=== PATIENT | male | born 1940 | race Caucasian/White ===

== ENCOUNTER 2017-09-23 15:38 | Outpatient (CLI) | payer MEDICARE, BC ==
[2017-09-23 16:50] LABS: Hematocrit 42.8 % (42.0-52.0); Mean Platelet Volume 9.2 fL (7.4-10.4); Red Blood Cell (RBC) Count 4.47 mill/uL (4.70-6.10)
[2017-09-23 17:16] LABS: Anion Gap 10 mmol/L (10-20); BUN (Urea Nitrogen) 26 mg/dL (8.4-25.7); Calc. Creatinine Clearance 0 mL/min (70-130); Calcium 8.9 mg/dL (7.8-10.44); Carbon Dioxide 27 mmol/L (23-31); Chloride 107 mmol/L (98-107); Estimated GFR-MDRD 77
[2017-09-23 19:31] LABS: Bilirubin Negative (Negative); Blood, Urine Negative (Negative); Glucose, Urine (Dipstick) Negative (Negative); Ketone, Urine Negative (Negative); Nitrite Negative (Negative); Protein, Urine (Dipstick) Negative (Neg-Trace)
[2017-09-23 19:36] LABS: Bacteria/HPF None Seen HPF (None Seen); Hyaline Casts/LPF 0-3 HYALINE CAST LPF (0-3 Hyaline); RBC/HPF 0-3 HPF (0-3); Squamous Epithelial None Seen HPF (0-3); WBC/HPF 0-3 HPF (0-3)
== END 2017-09-23 15:39 | disposition home or self-care (01) ==
LOC: LABBT 15:38
PROVIDERS: ATTEND Urology
DX: Z01.818 Encounter for other preprocedural examination (principal); N40.0 Benign prostatic hyperplasia without lower urinary tract symptoms; R30.0 Dysuria
CPT/HCPCS: 80048; 81001; 85027

== ENCOUNTER 2017-10-01 06:19 | Day surgery (SDC) | payer MEDICARE, BC ==
[2017-09-23 16:27] VITALS: BMI 26.1
[2017-10-01 07:36] LABS: Prothrombin Time 16.9 SEC (12.0-14.7)
[2017-10-01] MEDS ORDERED: Levofloxacin 500 mg/D5W 100 ml Premix Bag ONE (07:44)
[2017-10-01] MEDS ORDERED: Dexamethasone 10 MG/ML VIAL SLOW IVP SCH (08:00)
[2017-10-01] MEDS ORDERED: B & O ONE (09:28)
[2017-10-01] MEDS ORDERED: Furosemide 20 MG/2 ML VIAL ONE (09:29)
[2017-10-01] MEDS ORDERED: Fentanyl 100 MCG/2 ML VIAL ONE ×2 (09:35→11:27)
--- NOTE | 2017-10-01 12:20 | OP ---
DATE OF PROCEDURE: 10/01/2017 PREOPERATIVE DIAGNOSIS: Benign prostatic hypertrophy. POSTOPERATIVE DIAGNOSIS: Benign prostatic hypertrophy. PROCEDURE: GreenLight laser vaporization of the prostate, 106,101J used. SURGEON: Dr. Kay. ANESTHESIA: General with laryngeal mask airway. FINDINGS: Adequate opening of the prostatic urethra. SPECIMEN: Prostate. ESTIMATED BLOOD LOSS: Minimal. DRAIN REMAINING: A 20-Sudanese 2-way. INDICATIONS: The patient is a 77-year-old male, who is followed in the office for BPH symptoms and already on maximum meds for definitive therapy. PROCEDURE IN DETAIL: The patient was brought into the room by Anesthesia, placed on table in supine position. After receiving general anesthetic, the legs were placed in lithotomy position and his perineum was prepped and draped in sterile fashion. Using the 24-Sudanese scope, I was unable to enter the meatus , so Feryn sounds were used to dilate the meatus to 26 Sudanese and then the scope was put back in and the bladder inspected. The ureteral orifices were preserved throughout the case and far enough away from the bladder neck. A power level of 80 was used near the bladder neck and the power level of 180 was used in the mid gland. A total of 106,101 joules used. When the scope was removed, a good stream was noted. Scope was put back in and bladder decompressed. Hemostasis ensured. A portion of the prostatic bed was pinning at power level of 80 for hemostasis and the scope was removed a final time. A 20-Sudanese catheter was placed to gravity and the patient was awakened and transferred to the PACU in stable condition. [facility]
[2017-10-01] MEDS ORDERED: Ondansetron HCl/PF 4 MG/2 ML Vial ONE (14:09)
[2017-10-01] MEDS ORDERED: ePHEDrine/0.9% NaCl/PF SYRINGE 50 mg/10 ml ONE (14:09)
[2017-10-01] MEDS ORDERED: Lidocaine 1% PF 5 ML VIAL ONE (14:09)
[2017-10-01] MEDS ORDERED: Propofol 200 MG/20 ML VIAL ONE (14:09)
== END 2017-10-01 13:15 | disposition home or self-care (01) ==
LOC: SDC 06:19
PROVIDERS: ATTEND Urology
PROC: 0V508ZZ Destruction of Prostate, Via Natural or Artificial Opening Endoscopic (ICD-10-PCS; principal; 2017-10-01)
DX: N40.1 Benign prostatic hyperplasia with lower urinary tract symptoms (principal); J45.909 Unspecified asthma, uncomplicated; G43.909 Migraine, unspecified, not intractable, without status migrainosus; I25.10 Atherosclerotic heart disease of native coronary artery without angina pectoris; I10 Essential (primary) hypertension; E78.00 Pure hypercholesterolemia, unspecified; K21.9 Gastro-esophageal reflux disease without esophagitis; Z91.018 Allergy to other foods; Z88.8 Allergy status to other drugs, medicaments and biological substances; Z95.2 Presence of prosthetic heart valve; Z95.1 Presence of aortocoronary bypass graft; Z95.0 Presence of cardiac pacemaker; Z87.891 Personal history of nicotine dependence; Z82.3 Family history of stroke; Z82.49 Family history of ischemic heart disease and other diseases of the circulatory system; Z98.890 Other specified postprocedural states
CPT/HCPCS: 36415; 85610; 88305; 96374; J1100; J1940; J1956; J2001; J2405; J2704; J3010

== ENCOUNTER 2018-01-03 14:29 | Emergency (ER) | payer MEDICARE, BC | END 2018-01-03 15:15 | disposition home or self-care (01) | LOC: ERS 14:29 | DX: S16.1XXA Strain of muscle, fascia and tendon at neck level, initial encounter (principal); I25.2 Old myocardial infarction; I50.9 Heart failure, unspecified; V89.2XXA Person injured in unspecified motor-vehicle accident, traffic, initial encounter | CPT/HCPCS: 99283 ==

== ENCOUNTER 2018-05-20 15:33 | Outpatient (CLI) | payer MEDICARE, BC | END 2018-05-20 15:34 | disposition home or self-care (01) | LOC: BICRAD 15:33 | PROVIDERS: ATTEND Internal Medicine Cardiovascular Disease | DX: R06.09 Other forms of dyspnea (principal); R22.2 Localized swelling, mass and lump, trunk | CPT/HCPCS: 71045 ==

== ENCOUNTER 2019-05-21 20:00 | Emergency (ER) | payer MEDICARE, BC ==
[2019-05-21] MEDS ORDERED: Lidocaine 1% PF 5 ML VIAL ONE (20:11)
[2019-05-21] MEDS ORDERED: Lidocaine 1% w/Epinephrine 1:100K 20 ML VIAL ONE (20:14)
[2019-05-21] MEDS ORDERED: Adacel (T-DAP) 0.5 ML SYRINGE ONE (20:15)
[2019-05-21] MEDS ORDERED: Bacitracin 1 PK ONE (20:32)
== END 2019-05-21 20:55 | disposition home or self-care (01) ==
LOC: ERS 20:00
DX: S61.412A Laceration without foreign body of left hand, initial encounter (principal); I25.2 Old myocardial infarction; I50.9 Heart failure, unspecified; Z79.01 Long term (current) use of anticoagulants; Z79.899 Other long term (current) drug therapy; W26.0XXA Contact with knife, initial encounter; Z23 Encounter for immunization
CPT/HCPCS: 12001; 90471; 90715; J2001

== ENCOUNTER 2019-08-27 21:51 | Emergency (ER) | payer MEDICARE, BC ==
[2019-08-27 23:03] LABS: #Eosinphils 0.2 thou/uL (0.0-0.7); #Lymphocytes 1.4 thou/uL (1.20-3.40); #Monocytes 0.4 thou/uL (0.11-0.59); #Neutrophils 2.1 thou/uL (1.40-6.50); %Basophils 0.8 % (0.0-1.0); %Eosinophils 4.8 % (0.0-10.0); %Lymphocytes 33.8 % (21.0-51.0); %Monocytes 10.3 % (0.0-10.0); %Neutrophils 50.4 % (42.0-75.0); Hemoglobin 13.5 g/dL (14.0-18.0); Mean Corpuscular HGB CONC 32.6 g/dL (32.0-36.0); Mean Corpuscular Volume 91.8 fL (78.0-98.0); Mean Platelet Volume 7.7 fL (7.4-10.4); Platelet Count 125 thou/uL (130-400); RBC Distribution Width 13.7 % (11.5-14.5); Red Blood Cell (RBC) Count 4.51 mill/uL (4.70-6.10); White Blood Cell (WBC) Count 4.2 thou/uL (4.8-10.8)
[2019-08-27 23:10] LABS: INR-International Normal Ratio 3.2; PTT 46.3 SEC (22.9-36.1); Prothrombin Time 32.4 SEC (12.0-14.7)
--- NOTE | 2019-08-27 23:24 | CT ---
NONCONTRAST CT HEAD: 08/27/19 HISTORY: Injury after a fall. Head laceration. COMPARISON: None. FINDINGS: Scattered areas of diminished attenuation is seen in the periventricular white matter which are nons pecific but likely attributable to chronic small vessel ischemic changes. There is no evidence There is no evidence of an acute infarction, hemorrhage, mass effect, or midline shift. There is mild cere bral and cerebellar volume loss. The ventricular system is normal in size, shape, and position. The visualized paranasal sinuses and mastoid air cells are clear. No calvarial fracture is identified. There is a calcification seen at the posterior aspect of the left globe of uncertain etiology. IMPRESSION: No acute intracranial abnormality is demonstrated. POS: JENI
--- NOTE | 2019-08-28 07:14 | RAD ---
3 VIEWS RIGHT WRIST: Date: 08/27/19 HISTORY: Patient tripped and fell, and has pain to bilateral wrists. FINDINGS: There is osteopenia. No obvious fracture is seen, and there is no evidence of a dislocation. Mild deg enerative changes seen involving the carpal bones. Minimal calcification seen in the region of the tr iangular fibrocartilage suggesting chondrocalcinosis. There is a lucency seen in the proximal pole of the hamate bone, which may be related to subchondral cystic changes versus intraosseous ganglion. Va scular calcifications seen volar aspect of wrist. IMPRESSION: No acute osseous abnormality. POS: OFF
--- NOTE | 2019-08-28 07:17 | RAD ---
3 VIEWS LEFT WRIST: Date: 08/27/19 HISTORY: Bilateral wrist pain after fall. 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 Osteopenia is present. N o obvious fracture or dislocation identified. Calcifications are seen in the region of the triangular fibrocartilage suggesting chondrocalcinosis. There is mild subcutaneous soft tissue swelling dorsal to the wrist. There are a few amorphous appearing calcifications seen at the dorsal aspect of the wri st, which is thought to more likely be related to calcifications as opposed to tiny avulsion injuries . No other findings. IMPRESSION: Subcutaneous soft tissue swelling dorsal to the wrist without an obvious displaced fracture seen. The re are amorphous appearing calcifications dorsal to the wrist with similar findings seen on the contr alateral right wrist. Findings are likely related to calcifications as opposed to avulsion injuries. POS: OFF
== END 2019-08-27 23:39 | disposition home or self-care (01) ==
LOC: ERS 21:51
DX: S01.81XA Laceration without foreign body of other part of head, initial encounter (principal); S60.212A Contusion of left wrist, initial encounter; S60.211A Contusion of right wrist, initial encounter; I25.2 Old myocardial infarction; I50.9 Heart failure, unspecified; N40.0 Benign prostatic hyperplasia without lower urinary tract symptoms; Z79.01 Long term (current) use of anticoagulants; Z79.899 Other long term (current) drug therapy; W01.0XXA Fall on same level from slipping, tripping and stumbling without subsequent striking against object, initial encounter
CPT/HCPCS: 70450; 73110 ×2; 80061; 82947; 85025; 85610; 85730; 99284; G0103; 36415

== ENCOUNTER 2019-09-15 07:23 | Outpatient (CLI) | payer MEDICARE, BC ==
--- NOTE | 2019-09-15 08:18 | ULT ---
ABDOMINAL AORTA ULTRASOUND: HISTORY: Abdominal aortic aneurysm screening. COMPARISON: None. TECHNIQUE: Grayscale, color flow, Doppler imaging and spectral waveform is performed in the proximal, mid and ab dominal aorta. FINDINGS: Proximal aorta measures 2.4 cm in the sagittal plane. Mid aorta measures 2.3 cm in the sagittal plane . Distal aorta measures 2.3 cm in the sagittal plane. No significant atherosclerotic disease. The visualized aorta is patent. IMPRESSION: No sonographic evidence of abdominal aortic aneurysm. Transcribed Date/Time: 09/15/2019 8:36 AM
== END 2019-09-15 07:24 | disposition home or self-care (01) ==
LOC: ULT 07:23
PROVIDERS: ATTEND Family Medicine
DX: Z13.6 Encounter for screening for cardiovascular disorders (principal)
CPT/HCPCS: 76775

== ENCOUNTER 2019-12-14 13:26 | Observation (INO) | payer MEDICARE, BC ==
--- NOTE | 2019-12-14 14:02 | RAD ---
EXAM: Single view of the chest HISTORY: Left chest pain COMPARISON: 11/11/2012 FINDINGS: Single view of the chest shows a normal sized cardiomediastinal silhouette. The patient is status post sternotomy. The pacemaker is unchanged in position. There is no evidence of consolidation, mass, or pleural effusion. The bones are unremarkable. IMPRESSION: No evidence of acute cardiopulmonary disease
[2019-12-14 14:20] LABS: #Eosinphils 0.1 thou/uL (0.0-0.7); #Lymphocytes 1.3 thou/uL (1.20-3.40); #Monocytes 0.4 thou/uL (0.11-0.59); #Neutrophils 2.5 thou/uL (1.40-6.50); %Basophils 0.2 % (0.0-1.0); %Lymphocytes 29.6 % (21.0-51.0); %Monocytes 9.2 % (0.0-10.0); Hemoglobin 13.7 g/dL (14.0-18.0); Mean Corpuscular Hemoglobin 31.6 pg (27.0-31.0); Mean Corpuscular Volume 92.9 fL (78.0-98.0); Mean Platelet Volume 8.4 fL (7.4-10.4); Platelet Count 112 thou/uL (130-400); RBC Distribution Width 13.4 % (11.5-14.5); Red Blood Cell (RBC) Count 4.33 mill/uL (4.70-6.10); White Blood Cell (WBC) Count 4.3 thou/uL (4.8-10.8)
[2019-12-14 14:41] LABS: ALT (SGPT) 20 U/L (8-55); AST (SGOT) 22 U/L (5-34); Albumin 3.4 g/dL (3.4-4.8); Alkaline Phosphatase 62 U/L (40-110); Anion Gap 7 mmol/L (10-20); BUN (Urea Nitrogen) 29 mg/dL (8.4-25.7); Bilirubin, Total 1.1 mg/dL (0.2-1.2); CK (CPK) 108 U/L (30-200); Calc. Creatinine Clearance 0 mL/min (70-130); Calcium 8.5 mg/dL (7.8-10.44); Carbon Dioxide 31 mmol/L (23-31); Chloride 107 mmol/L (98-107); Estimated GFR-MDRD 64; Globulin 2.8 g/dL (2.4-3.5); Glucose 100 mg/dL (83-110); Potassium 4.2 mmol/L (3.5-5.1); Protein, Total 6.2 g/dL (5.8-8.1); Sodium 141 mmol/L (136-145)
[2019-12-14 15:03] LABS: CKMB 3.8 ng/mL (0-6.6)
[2019-12-14] MEDS ORDERED: HYDROcodone/Acetaminophen 5/325 mg Tablet PO PRN (20:16)
[2019-12-14] MEDS ORDERED: Nitroglycerin 0.4 MG TAB (25 Tab Bottle) PO PRN (20:16)
[2019-12-14] MEDS ORDERED: Acetaminophen 325 MG TAB PO PRN (20:16)
[2019-12-14] MEDS ORDERED: Ondansetron PF 4 MG/2 ML Vial IVP PRN (20:16)
[2019-12-14 20:18] VITALS: BMI 27.9
--- NOTE | 2019-12-14 20:24 | PDOC.HHP ---
Hospitalist HPI - History of Present Illness Chest pain History of Present Illness: Mr. Kaminski is a 79-year-old gentleman with past medical history of aortic valve replacement which is a titanium composite valve, hyperlipidemia, asthma, pacemaker who presents to the emergency room with exertional chest pain. He states that he went to exercise class this morning and felt short of breath and felt left-sided chest pressure, radiating to the left arm and left shoulder, intermittent, alleviated by sitting down. He decided to go home after this and walk his dog when he had recurrence of the pain and had to sit down. He states the character of the pain was a pressure-like sensation. He states that the symptoms were similar to an episode over 10 years ago in which she had a heart attack. He decided to call the ambulance. He was given aspirin and Nitropaste with alleviation of symptoms. Of note, he sees Dr. Lugo in the outpatient and was set to undergo a left heart cath on 12/24 of this month. He has history of mechanical valve replacement on Warfarin. Hospitalist ROS - Review of Systems Constitutional: denies: fever, chills, sweats, weakness, malaise, other Eyes: denies: pain, vision change, conjunctivae inflammation, eyelid inflammation, redness, other ENT: denies: ear pain, ear discharge, nose pain, nose discharge, nose congestion , mouth pain, mouth swelling, throat pain, throat swelling, other Respiratory: denies: cough, dry, shortness of breath, hemoptysis, SOB with excertion, pleuritic pain, sputum, wheezing, other Cardiovascular: reports: chest pain. denies: palpitations, orthopnea, paroxysmal noc. dyspnea, edema, light headedness, other Gastrointestinal: denies: nausea, vomiting, abdominal pain, diarrhea, constipation, melena, hematochezia, other Genitourinary: denies: dysuria, frequency, incontinence, hematuria, retention, other Musculoskeletal: denies: neck pain, shoulder pain, arm pain, back pain, hand pain, leg pain, foot pain, other Skin: denies: rash, lesions, yosvany, bruising, other Neurological: denies: weakness, numbness, incoordination, change in speech, confusion, seizures, other - Medication Medications: warfarin SatDec 14, 2019 13:35 JERRI Corrales, Allison TABLET : Strength - 1 mg : ORAL Patient Dose: UNK once a day. simvastatin SatDec 14, 2019 13:35 JERRI Corrales Jennifer TABLET : Strength - 10 mg : ORAL Patient Dose: 1 tab(s) Oral once a day (at bedtime). Brovana SatDec 14, 2019 13:35 JERRI Corrales Jennifer VIAL, NEBULIZER (ML) : Strength - 15 mcg/2 mL : INHALATION Patient Dose: Unknown. budesonide inhalation SatDec 14, 2019 13:36 JERRI Corrales Jennifer suspension for nebulization : Strength - 1 mg/2 mL : INHALATION Patient Dose: UNK 2 times a day. Symbicort SatDec 14, 2019 13:37 JERRI Corrales Jennifer HFA aerosol inhaler : Strength - 160 mcg-4.5 mcg/actuation : INHALATION Patient Dose: UNK As Needed. 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 Gastrointestinal: reports: no pertinent history Heme/Onc: reports: no pertinent history Hepatobiliary: reports: no pertinent history Psych: reports: no pertinent history Musculoskeletal: reports: no pertinent history Rheumatologic: reports: no pertinent history Infectious Disease: reports: no pertinent history ENT: reports: no pertinent history Renal/: reports: no pertinent history Endocrine: reports: no pertinent history Dermatology: reports: no pertinent history - Past Surgical History Past Surgical History: reports: Other (Valve replacement) - Family History Family History: reports: cardiac disorder - Social History Smoking Status: Never smoker Alcohol: reports: None Drugs: reports: none Living Situation: With Family Activity level: independent ambulation - Exam General Appearance: NAD, awake alert Eye: PERRL, anicteric sclera ENT: normocephalic atraumatic, no oropharyngeal lesions, moist mucosa Neck: supple, symmetric, no JVD, no thyromegaly, no lymphadenopathy, no carotid bruit Heart: RRR, no murmur, no gallops, no rubs, normal peripheral pulses Respiratory: CTAB, no wheezes, no rales, no ronchi, normal chest expansion, no tachypnea, normal percussion Gastrointestinal: soft, non-tender, non-distended, normal bowel sounds, no palpable masses, no hepatomegaly, no splenomegaly, no bruit Extremities: no cyanosis, no clubbing, no edema Skin: normal turgor, no lesions, no rashes Neurological: cranial nerve grossly intact, normal sensation to touch, no weakness, no focal deficits, no new deficit Musculoskeletal: normal tone, normal strength, no muscle wasting Psychiatric: normal affect, normal behavior, A&O x 3 Hospitalist Results - Labs Result Diagrams: 12/14/19 14:08 12/14/19 14:08 Lab results: WBC 4.3 thou/uL (4.8-10.8) L 12/14/19 14:08 Hgb 13.7 g/dL (14.0-18.0) L 12/14/19 14:08 Hct 40.2 % (42.0-52.0) L 12/14/19 14:08 MCV 92.9 fL (78.0-98.0) 12/14/19 14:08 Plt Count 112 thou/uL (130-400) L 12/14/19 14:08 Neutrophils % 59.0 % (42.0-75.0) 12/14/19 14:08 Sodium 141 mmol/L (136-145) 12/14/19 14:08 Potassium 4.2 mmol/L (3.5-5.1) 12/14/19 14:08 Chloride 107 mmol/L (98-107) 12/14/19 14:08 Carbon Dioxide 31 mmol/L (23-31) 12/14/19 14:08 BUN 29 mg/dL (8.4-25.7) H 12/14/19 14:08 Creatinine 1.12 mg/dL (0.7-1.3) 12/14/19 14:08 Glucose 100 mg/dL (83-110) 12/14/19 14:08 Calcium 8.5 mg/dL (7.8-10.44) 12/14/19 14:08 Total Bilirubin 1.1 mg/dL (0.2-1.2) 12/14/19 14:08 AST 22 U/L (5-34) 12/14/19 14:08 ALT 20 U/L (8-55) 12/14/19 14:08 Alkaline Phosphatase 62 U/L (40-110) 12/14/19 14:08 Creatine Kinase 108 U/L (30-200) 12/14/19 14:08 CK-MB (CK-2) 3.8 ng/mL (0-6.6) 12/14/19 14:08 Troponin I 0.044 ng/mL (< 0.028) H 12/14/19 14:08 B-Natriuretic Peptide 155.4 pg/mL (0-100) H 12/14/19 14:08 Serum Total Protein 6.2 g/dL (5.8-8.1) 12/14/19 14:08 Albumin 3.4 g/dL (3.4-4.8) 12/14/19 14:08 - EKG Interpretation EK lead EKG shows, paced rhythm, Rate (beats per minute): 80, Conduction normal , ST segments normal, T waves normal, [place] normal Hospitalist H&P A/P - Problem (1) Chest pain Code(s): R07.9 - CHEST PAIN, UNSPECIFIED Status: Acute (2) Mechanical heart valve present Code(s): Z95.2 - PRESENCE OF PROSTHETIC HEART VALVE Status: Acute (3) Asthma Code(s): J45.909 - UNSPECIFIED ASTHMA, UNCOMPLICATED Status: Acute (4) HLD (hyperlipidemia) Code(s): E78.5 - HYPERLIPIDEMIA, UNSPECIFIED Status: Acute (5) Chronic anticoagulation Code(s): Z79.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 We will continue to trend troponin and subsequent EKGs. 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 We will continue home medications once reconciled DVT prophylaxis: SCDs CODE STATUS: Full code ACP: Surrogate decision maker is the son Disposition: Admit to rule out ACS. Coordinate with cardiology.
[2019-12-14 20:37] LABS: INR-International Normal Ratio 1.9; Prothrombin Time 21.6 SEC (12.0-14.7)
[2019-12-14 20:55] LABS: Troponin I 0.048 ng/mL (< 0.028)
[2019-12-14] MEDS: Metoprolol Tartrate 25 MG TAB PO SCH (22:30)
[2019-12-14 23:51] LABS: Troponin I 0.048 ng/mL (< 0.028)
[2019-12-15 05:48] LABS: #Eosinphils 0.1 thou/uL (0.0-0.7); #Lymphocytes 1.5 thou/uL (1.20-3.40); #Monocytes 0.5 thou/uL (0.11-0.59); #Neutrophils 2.3 thou/uL (1.40-6.50); %Basophils 0.4 % (0.0-1.0); %Eosinophils 2.5 % (0.0-10.0); %Lymphocytes 33.8 % (21.0-51.0); %Monocytes 10.5 % (0.0-10.0); %Neutrophils 52.9 % (42.0-75.0); ALT (SGPT) 18 U/L (8-55); AST (SGOT) 18 U/L (5-34); Albumin 3.2 g/dL (3.4-4.8); Alkaline Phosphatase 53 U/L (40-110); Anion Gap 9 mmol/L (10-20); BUN (Urea Nitrogen) 22 mg/dL (8.4-25.7); Bilirubin, Total 1.1 mg/dL (0.2-1.2); Calc. Creatinine Clearance 90 mL/min (70-130); Calcium 8.4 mg/dL (7.8-10.44); Carbon Dioxide 25 mmol/L (23-31); Cardiac Risk 2.6 (Less than 4.5); Chloride 110 mmol/L (98-107); Cholesterol 133 mg/dl (< 200 Desired); Estimated GFR-MDRD 84; Globulin 2.6 g/dL (2.4-3.5); Glucose 84 mg/dL (83-110); HDL Cholesterol 52 mg/dL (>60 Neg Risk); Hemoglobin 13.5 g/dL (14.0-18.0); LDL Cholesterol, Calculated 72 mg/dL; Mean Corpuscular HGB CONC 33.4 g/dL (32.0-36.0); Mean Corpuscular Hemoglobin 31.2 pg (27.0-31.0); Mean Corpuscular Volume 93.4 fL (78.0-98.0); Mean Platelet Volume 8.7 fL (7.4-10.4); Platelet Count 117 thou/uL (130-400); Protein, Total 5.8 g/dL (5.8-8.1); RBC Distribution Width 13.6 % (11.5-14.5); Red Blood Cell (RBC) Count 4.33 mill/uL (4.70-6.10); Sodium 140 mmol/L (136-145); Triglycerides 45 mg/dL (Less than 150); White Blood Cell (WBC) Count 4.4 thou/uL (4.8-10.8)
[2019-12-15 06:42] LABS: CKMB 2.3 ng/mL (0-6.6)
--- NOTE | 2019-12-15 08:18 | PDOC.HOSPP ---
- Subjective Encounter Date: 12/15/19 Encounter Time: 12:00 Subjective: Patient with some chest pain with any ambulation, none currently at rest. No N/ V. No SOB. No other symptoms. - Objective Vital Signs & Weight: Vital Signs (12 hours) Temp Pulse Resp BP BP Pulse Ox 12/15/19 07:00 97.4 F L 75 16 125/80 96 12/15/19 04:00 97.8 F 80 18 118/73 96 12/14/19 23:59 97.6 F 69 14 116/68 Weight Weight 200 lb 8 oz I&O: 12/14/19 12/15/19 12/16/19 06:59 06:59 06:59 Intake Total 820 Output Total 1610 Balance -790 Result Diagrams: 12/15/19 04:27 12/15/19 04:27 Hospitalist ROS - Review of Systems Constitutional: denies: fever, chills Respiratory: denies: cough, shortness of breath Cardiovascular: reports: chest pain. denies: palpitations Gastrointestinal: denies: nausea, vomiting, abdominal pain - Medication Medications: Active Medications Generic Name Dose Route Start Last Admin Trade Name Freq PRN Reason Stop Dose Admin Metoprolol Tartrate 12.5 mg 12/14/19 21:00 12/14/19 22:30 Lopressor PO Not Given BID CAMELIA - Exam General Appearance: NAD, awake alert ENT: moist mucosa Heart: RRR, no murmur, no gallops, no rubs Respiratory: CTAB, no wheezes, no rales, no ronchi Gastrointestinal: soft, non-tender, non-distended, normal bowel sounds Psychiatric: normal affect, normal behavior, A&O x 3 Hosp A/P (1) Chest pain Code(s): R07.9 - CHEST PAIN, UNSPECIFIED Status: Acute (2) CAD (coronary artery disease) Code(s): I25.10 - ATHSCL HEART DISEASE OF [place] CORONARY ARTERY W/O ANG PCTRS Status: Chronic (3) Mechanical heart valve present Code(s): Z95.2 - PRESENCE OF PROSTHETIC HEART VALVE Status: Chronic (4) Chronic anticoagulation Code(s): Z79.01 - CUSTODIAL (CURRENT) USE OF ANTICOAGULANTS Status: Chronic (5) HLD (hyperlipidemia) Code(s): E78.5 - HYPERLIPIDEMIA, UNSPECIFIED Status: Chronic (6) Asthma Code(s): J45.909 - UNSPECIFIED ASTHMA, UNCOMPLICATED Status: Chronic - Plan Troponins indeterminate, stable Cardiology consult- Dr. Lugo to see today, no plan for intervention today so she is letting the patient eat. DVT proph: on Coumadin, INR 1.9
[2019-12-15] MEDS ORDERED: Arformoterol 15 MCG/2 ML NEB NEB SCH (09:00)
[2019-12-15] MEDS ORDERED: Non-Formulary Item 1 EACH (Budesonide-Formoterol [Symbicort 80-4.5] 1 PUFF) INH SCH (09:00)
[2019-12-15] MEDS: Lactinex Tablet PO SCH (09:07)
[2019-12-15] MEDS: Aspirin 325 mg Enteric Coated Tablet PO SCH (09:07)
[2019-12-15] MEDS: Metoprolol Tartrate 25 MG TAB PO SCH ×2 (09:07→19:48)
--- NOTE | 2019-12-15 14:31 | CON ---
DATE OF CONSULTATION: PRIMARY CARE DOCTOR: Dr. Brody Davey. PRIMARY PLASTERING CONTRACTOR: Dr. Laurie Lugo. REASON FOR CARDIOLOGY CONSULT: Chest pain. HISTORY OF PRESENT ILLNESS: Mr. Kaminski is a very pleasant 79-year-old male with significant history of coronary artery disease with CABG x1 in 2009, status post aortic valve replacement in 2009, pacemaker placement, hypertension, asthma, hyperlipidemia. The patient has seen Dr. Lugo on December 08 for complaint of dizziness and the patient was found to have pacemaker longevity is close. The patient needed a pacemaker generator change out. The patient also complained of dizziness and chest tightness. The patient planned to have another cardiac catheterization on December 24, 2019. He was doing relatively okay till yesterday when he was doing exercise at the [employer]. He started having shortness of breath. However, at that time, he could finish two classes there and when he was walking with dog yesterday, after he walked 0.5 mile, he started having chest tightness in the left upper chest, which radiated to the left shoulder and worsening of the fatigue and shortness of breath. The symptom was very similar when he had myocardial infarction and had a CABG in 2009. Due to those symptoms reason, the patient decided to present to the emergency department for further evaluation and treatment. The patient's troponin has been indeterminate and the patient's INR today is 1.9. The patient denied any chest pain, tightness, discomfort in his chest, shortness of breath, or any cardiac complaints except dizziness after he gets up to the bathroom. The patient had a history of CABG x1 with WARD to LAD in April 2010 with aortic valve replacement. He has been on Coumadin. Today, his INR is 1.9. The patient had echocardiogram done in May 2019 with EF of 45% to 50%, moderate right atrial enlargement, moderate mitral valve regurgitation, moderate to severe tricuspid regurgitation, mild aortic valve regurgitation, and mild pulmonic valve regurgitation. The patient had a stress test done in 2015, possible abnormal and the patient was recommend to have a cath if the patient is symptomatic at that time. The patient underwent a cardiac catheterization in November 2016 with atretic WARD with essentially no flow to LAD and 50% mid LAD stenosis. 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 PAST SURGICAL HISTORY: The patient has history of CABG x1 with WARD to LAD in April 2010 with aortic valve replacement, Medtronic dual-chamber pacemaker placement in July 2011, ruptured Achilles tendon repair, and another cath in 2016. FAMILY HISTORY: The patient's mother has a history of coronary artery disease, hypertension. The patient's father had a history of stroke. The patient's sister has a medical history of diabetes, hypertension. SOCIAL HISTORY: He is retired. He is a . His in October 2019. He denies EtOH, tobacco, or illicit drugs abuse. He has continued exercising almost everyday. ALLERGIES: HE IS ALLERGIC TO ASPIRIN, BUTALBITAL, CAFFEINE, AND ANTIHISTAMINE. HOME MEDICATIONS: 1. Simvastatin 10 mg once a day at night. 2. Symbicort 80/4.5 one puff twice a day. 3. Pulmicort twice a day. 4. Brovana twice a day. 5. one tablet once a day. 6. Coumadin 2.5 mg on Saturday and Saturday, and Coumadin 5 mg tablets on Saturday. REVIEW OF SYSTEMS: A 12-point review of systems negative unless otherwise mentioned in HPI. PHYSICAL EXAMINATION: VITAL SIGNS: Blood pressure 116/68, temperature 97.8, pulse is 80, respiratory rate 18, O2 saturation 96% on room air. GENERAL: The patient is alert and oriented x4, not in acute distress. HEENT: Normocephalic and atraumatic. EYES: Extraocular muscle movement intact. He wears glasses for reading. NECK: Supple. Normal range of motion. No JVD. ENT AND MOUTH: Oral and nasal mucosa moist without lesions. RESPIRATORY: Clear to auscultate bilaterally. No wheezing, rales, or rhonchi noted. CARDIOVASCULAR: Regular rate and rhythm. Normal S1 and S2. There is no S3 or S4. No significant murmur, hives, or thrill noted. The patient has a click on the right mediastinal border. 2+ pulses in bilateral upper and lower extremities. No edema in lower extremities. He usually wears compression stockings at home. Carotid pulses are present without bruit or thrill. ABDOMEN: Soft, nontender. No mass to palpate. Bowel sounds are present. SKIN: Warm and dry. No lesion, rash, or erythema noted. MUSCULOSKELETAL: The patient is able to move all extremities. The patient denied claudication. NEUROLOGIC: The patient is alert and oriented x4. Nonfocal. PSYCHIATRIC: The patient's mood is appropriate. LABORATORY DATA: WBC 4.4, hemoglobin 13.5, hematocrit 40.5, platelets 117,000, sodium 140, potassium 4.0, BUN 22, creatinine 0.88, glucose 84, AST 18, ALT 18. Creatine kinase 53, CK-MB 2.3, and troponin 0.044, 0.048, 0.045. BNP 155.4. LDL 72, total cholesterol 133, triglycerides 45, and HDL 52. PSA in October 2019 was 5.39. The chest x-ray shows no acute cardiopulmonary disease. A 12-lead EKG at the ER shows AV pacing with T wave inversion in lead II and III. ASSESSMENT AND PLAN: 1. Chest tightness with indeterminate troponin level. The patient has been n.p.o. The patient's hemoglobin level and kidney function are stable. One thing is, the patient's INR is 1.9. His last Coumadin dose was on Saturday night. Since the patient states the patient had symptom for almost 6 weeks, the patient was planned to have the cardiac catheterization on December 24. I would like to discuss with Dr. Lugo, the patient might undergo cardiac catheterization today or possible tomorrow. I would like to defer to Dr. Lugo. 2. Coronary artery disease, status post coronary artery bypass graft x1 in April 2010. He is on simvastatin. He is allergic to aspirin, but he is on Coumadin. He is not on beta elton or ESA inhibitor for quite a while. I would like to discuss with Dr. Lugo at this moment. 3. Pacemaker placement in July 2011. The patient is going to have another pacemaker interrogation in January in Dr. Lugo's office for near end of the pacemaker longevity. At this moment, the patient is asymptomatic. He is on the monitoring engineer right now. 4. Hypertension. Blood pressure is stable at this moment. 5. Hyperlipidemia. His cholesterol level is stable at this moment with simvastatin 10 mg once a day. Thank you very much for Cardiology Service to participate in the care of this patient. We will follow along the patient's care team and make further recommendations as appropriate. Job ID: [id number]
[2019-12-15] MEDS ORDERED: Warfarin Sodium 5 MG TAB PO SCH ×3 (17:00→21:00)
[2019-12-15] MEDS: Arformoterol 15 MCG/2 ML NEB NEB SCH (17:58)
[2019-12-15] MEDS: Budesonide 0.5 MG/2 ML NEB NEB SCH (17:59)
[2019-12-15] MEDS: Mometasone/Formoterol 120 PUFF INHALER INH SCH (18:00)
[2019-12-15] MEDS ORDERED: Non-Formulary Item 1 EACH (Simvastatin [Zocor] 10 MG) PO SCH (21:00)
[2019-12-15] MEDS ORDERED: Simvastatin 5 MG TAB PO SCH (21:00)
[2019-12-16 05:09] LABS: INR-International Normal Ratio 1.6; Prothrombin Time 18.8 SEC (12.0-14.7)
[2019-12-16] MEDS ORDERED: Lidocaine 1% (PF) 30 ML VIAL ONE (06:40)
[2019-12-16] MEDS ORDERED: Heparin (Artline) 1,000 ML ONE (06:40)
[2019-12-16] MEDS ORDERED: Heparin 10,000 UNITS/1 ML VIAL ONE (06:40)
[2019-12-16] MEDS ORDERED: Verapamil 5 MG/2 ML VIAL ONE (06:40)
[2019-12-16] MEDS ORDERED: Nitroglycerin 100MG/250ML BOT 250 ML ONE (06:40)
[2019-12-16] MEDS ORDERED: Midazolam HCl 2 mg/2 ml Vial ONE ×2 (07:11→08:27)
--- NOTE | 2019-12-16 07:57 | CON ---
DATE OF CONSULTATION: 12/15/2019 ADDENDUM: INDICATION FOR CONSULTATION: A 79-year-old patient, who has been followed by me for many years. He has a history of aortic valve replacement, which was done at an outside facility with a 25 mm Kamaljit valve done in 2009. He also at the same time underwent coronary artery bypass grafting with a WARD to the left anterior descending artery. He underwent cardiac catheterization in 2017, which showed a very atretic WARD to the left anterior descending with almost no flow, but it appeared that the left anterior descending artery was about 50% stenosis. It was not felt to be flow limiting. He has been followed on a routine basis and presented yesterday to the hospital after he had been having some episodes of exertional chest pain radiating to the left shoulder with shortness of breath and increased fatigue. He had already been previously seen in the office and had an abnormal evaluation , which he had complained of being dizzy and shortness of breath, and was advised to undergo a repeat cardiac catheterization. This was scheduled for I believe next week. Unfortunately, the patient presented to the hospital at this time complaining of the chest discomfort, which appears to be unstable anginal type symptoms. At this time, I have discussed with him the need to proceed with cardiac catheterization. We will plan for this tomorrow. He has been on Coumadin due to his mechanical aortic valve. His INR was 1.9 today. He seems to be comfortable otherwise as long as he does not exert himself. He has no significant chest discomfort. The EKG is indeterminate since the patient is ventricular pacing. He did have history of pacemaker insertion also back in 2010. At this time, we will plan for a cardiac catheterization tomorrow. If the patient should be found to have significant left anterior descending artery stenosis or progression of disease, he may need to undergo angioplasty and stent placement or redo bypass surgery depending on the extent of the disease and whether or not we are limited in the approach to the left anterior descending artery. Otherwise, his aortic valve appears to be normal on the last echocardiogram without any evidence of obstruction. Ejection fraction in 2018 by echocardiogram was 50% to 55% with normal functioning mechanical aortic valve. He did have 1/3 diastolic dysfunction at that time, but otherwise has remained stable until just recently when he appears to have developed unstable type angina. I have explained the procedure and the risks for cardiac catheterization to him to include bleeding, infection, possible myocardial infarction, CVA, renal insufficiency, allergic contrast reaction, and the possibility of . He understands and agrees to proceed. We will plan for a cardiac catheterization tomorrow. We will recheck the INR tomorrow morning prior to proceeding with cardiac catheterization. Hopefully, this can be done through a radial approach with decreased risk of bleeding, which can be easily controlled at the wrist. Please refer to the notes already dictated by my nurse practitioner, Ronit Lai. Job ID: [id number] [facility]
[2019-12-16] MEDS ORDERED: Heparin (Artline) 500 ML ONE (08:15)
--- NOTE | 2019-12-16 08:16 | PDOC.HOSPP ---
- Subjective Encounter Date: 12/16/19 Encounter Time: 11:30 Subjective: Back from cath, had bare metal stent to mid LAD. Doing well without complaints. - Objective Vital Signs & Weight: Vital Signs (12 hours) Temp Pulse Resp BP Pulse Ox 12/16/19 03:48 98.1 F 66 18 105/70 96 Weight Weight 199 lb 12.8 oz I&O: 12/15/19 12/16/19 12/17/19 06:59 06:59 06:59 Intake Total 820 200 Output Total 1610 Balance -790 200 Result Diagrams: 12/15/19 04:27 12/15/19 04:27 Hospitalist ROS - Review of Systems Constitutional: denies: fever, chills Respiratory: denies: cough, shortness of breath Cardiovascular: denies: chest pain, palpitations Gastrointestinal: denies: nausea, vomiting, abdominal pain - Medication Medications: Active Medications Generic Name Dose Route Start Last Admin Trade Name Freq PRN Reason Stop Dose Admin Acidophilus 1 tab 12/15/19 09:00 12/15/19 09:07 Floranex PO 1 tab DAILY CAMELIA Administration Arformoterol Tartrate 15 mcg 12/15/19 18:30 12/15/19 17:58 Brovana NEB 15 mcg BID-RT CAMELIA Administration Aspirin 325 mg 12/15/19 09:00 12/15/19 09:07 Ecotrin PO 325 mg DAILY CAMELIA Administration Budesonide 1 mg 12/15/19 18:30 12/15/19 17:59 Pulmicort Neb Solution NEB 1 mg BID-RT CAMELIA Administration Metoprolol Tartrate 12.5 mg 12/14/19 21:00 12/15/19 19:48 Lopressor PO 12.5 mg BID CAMELIA Administration Mometasone Furoate/Formoterol Fumar 2 puff 12/15/19 18:30 12/15/19 18:00 Dulera 100 Mcg/5 Mcg Inhaler INH Not Given BID-RT CAMELIA Simvastatin 10 mg 12/15/19 21:00 12/15/19 19:48 Zocor PO 10 mg HS CAMELIA Administration Warfarin Sodium 5 mg 12/15/19 17:00 12/15/19 18:19 Coumadin PO Not Given SuTuThSa@1700 CAMELIA - Exam General Appearance: NAD, awake alert ENT: moist mucosa Heart: RRR, no gallops, no rubs Heart - other findings: metalic valve click, no other murmurs Respiratory: CTAB, no wheezes, no rales, no ronchi Gastrointestinal: soft, non-tender, non-distended, normal bowel sounds Psychiatric: normal affect, normal behavior, A&O x 3 Hosp A/P (1) Chest pain Code(s): R07.9 - CHEST PAIN, UNSPECIFIED Status: Acute (2) CAD (coronary artery disease) Code(s): I25.10 - ATHSCL HEART DISEASE OF [place] CORONARY ARTERY W/O ANG PCTRS Status: Chronic (3) Mechanical heart valve present Code(s): Z95.2 - PRESENCE OF PROSTHETIC HEART VALVE Status: Chronic (4) Chronic anticoagulation Code(s): Z79.01 - 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 Lugo. DVT proph: on Coumadin
[2019-12-16] MEDS ORDERED: TICAGRELOR 90 MG TABLET ONE (08:27)
[2019-12-16] MEDS ORDERED: Protamine Sulfate 50 MG/5 ML VIAL ONE (08:46)
[2019-12-16] MEDS ORDERED: TICAGRELOR 90 MG TABLET PO SCH ×2 (09:22→21:00)
[2019-12-16] MEDS ORDERED: Aspirin Chewable 81 MG TAB PO SCH (09:30)
[2019-12-16] MEDS ORDERED: Iopamidol 370 76% 100 ML VIAL ONE (09:37)
[2019-12-16] MEDS ORDERED: Iopamidol 370 76% 50 ML VIAL FS ONE (09:37)
[2019-12-16] MEDS: Budesonide 0.5 MG/2 ML NEB NEB SCH (10:26)
[2019-12-16] MEDS: Arformoterol 15 MCG/2 ML NEB NEB SCH (10:26)
[2019-12-16] MEDS: Mometasone/Formoterol 120 PUFF INHALER INH SCH (10:27)
[2019-12-16] MEDS: Lactinex Tablet PO SCH (10:27)
[2019-12-16] MEDS: Metoprolol Tartrate 25 MG TAB PO SCH (10:27)
[2019-12-16] MEDS: Aspirin 325 mg Enteric Coated Tablet PO SCH (10:34)
[2019-12-16 12:35] VITALS: BP 114/69; TEMP 97.9
[2019-12-16] MEDS ORDERED: Warfarin Sodium 2.5 MG TAB PO SCH (17:00)
--- NOTE | 2019-12-16 21:21 | PDOC.CPN ---
- Subjective Date: 12/16/19 Time: 13:00 - Review of Systems Respiratory: reports: shortness of breath Cardiovascular: reports: chest pain Gastrointestinal: reports: nausea Musculoskeletal: reports: pain, tenderness - Objective Allergies/Adverse Reactions: Allergies Allergy/AdvReac Type Severity Reaction Status Date / Time butalbital [From Fiorinal] Allergy Intermediate LOST SENSE Verified 09/23/17 16: 13 OF BALANCE Vital Signs & Weight: Vital Signs Temp Pulse Resp BP Pulse Ox 12/16/19 11:45 97.9 F 69 19 114/69 98 Weight 199 lb 12.8 oz - Quality Measures CV meds: Beta Ghazal: Yes, Statin: Yes, Plavix/Effient/Brilinta: Yes - Physical Exam General: alert & oriented x3 HEENT: normocephaly Neck: no masses, no bruit Cardiac: regular rate and rhythm Lungs: clear to auscultation Neuro: grossly intact Abdomen: unremarkable Extremities: no cyanosis, no clubbing, no edema - Labs Result Diagrams: 12/15/19 04:27 12/15/19 04:27 Troponin/CKMB CK-MB (CK-2) 2.3 ng/mL (0-6.6) 12/15/19 04:27 Troponin I 0.045 ng/mL (< 0.028) H 12/15/19 04:27 - Assessment/Plan Assessment/Plan: 1. CAD. s/p ptca/stent to the mid LAD this AM. Doing well.Wrist okay after radial artery approach for the procedure. 2. s/p AVR 10 years ago. Stable functional valve. 3. dyslipidemis: continue statin. He will be stable for discharge thisafternoon. F/U with me in 2-4weeks.
--- NOTE | 2019-12-17 02:12 | DIS ---
DATE OF ADMISSION: 12/14/2019 DATE OF DISCHARGE: 12/16/2019 PRIMARY CARE PHYSICIAN: Yolie Balderas. REASON FOR ADMISSION: Chest pain. DISCHARGE DIAGNOSES: 1. Angina, resolved. 2. Coronary artery disease, status post stent placement. 3. Mechanical heart valve. 4. Chronic anticoagulation. 5. Hyperlipidemia. 6. Asthma. PROCEDURES: Cardiac catheterization showing a 70% stenosis in the mid LAD, which was ballooned out and a drug-eluting stent placed. CONSULTATIONS: Cardiology, Dr. Lugo. SUMMARY OF HOSPITAL COURSE: This is a 79-year-old man with a known history of previous aortic valve replacement with a metal valve, on chronic warfarin. He came in with left-sided chest pain radiating to the left arm and left shoulder after exercise with shortness of breath. This recurred when he was walking his dog, so he came into the hospital. He had indeterminate but stable troponins. Dr. Lugo was consulted. She took him back for catheterization, which was planned in the near future anyway, which showed the above results and stent was placed due to his Coumadin. He was started on just a baby aspirin daily along with the Coumadin. His Coumadin had been held prior to the procedure and his INR was down to 1.6. He is to take an extra dose of his Coumadin tonight to get his INR back up. He is being discharged home. DISCHARGE MANAGEMENT: Discharged home. FOLLOWUP: Follow up for INR check on Saturday by Dr. Lugo as directed. ACTIVITY: As tolerated. DIET: Healthy heart diet. MEDICATIONS: 1. Aspirin 81 mg daily, 30 tablets dispensed. 2. Metoprolol tartrate 12.5 mg twice a day, 60 tablets dispensed. 3. Brilinta 90 mg twice a day, 60 tablets dispensed. 4. Brovana neb twice a day. 5. Budesonide nebulizer twice a day. 6. Symbicort one puff twice a day. 7. Lactobacillus one tablet daily. 8. Simvastatin 10 mg at night. 9. Warfarin 2.5 mg alternating with 5 mg every other day. Job ID: [id number]
[2019-12-17] MEDS ORDERED: Aspirin Chewable 81 MG TAB PO SCH (09:00)
== END 2019-12-16 14:47 | disposition home or self-care (01) ==
LOC: ERS 13:26 → ERHOLD 16:02 → 2SW 20:01
PROVIDERS: ADMIT Internal Medicine; ATTEND Emergency Medicine
PROC: 027034Z Dilation of Coronary Artery, One Artery with Drug-eluting Intraluminal Device, Percutaneous Approach (ICD-10-PCS; principal; 2019-12-16)
PROC: 4A023N7 Measurement of Cardiac Sampling and Pressure, Left Heart, Percutaneous Approach (ICD-10-PCS; 2019-12-16)
PROC: B2111ZZ Fluoroscopy of Multiple Coronary Arteries using Low Osmolar Contrast (ICD-10-PCS; 2019-12-16)
PROC: B2181ZZ Fluoroscopy of Left Internal Mammary Bypass Graft using Low Osmolar Contrast (ICD-10-PCS; 2019-12-16)
DX: I25.119 Atherosclerotic heart disease of native coronary artery with unspecified angina pectoris (principal); I25.2 Old myocardial infarction; I11.0 Hypertensive heart disease with heart failure; I50.9 Heart failure, unspecified; E78.5 Hyperlipidemia, unspecified; J45.909 Unspecified asthma, uncomplicated; I44.2 Atrioventricular block, complete; I45.10 Unspecified right bundle-branch block; I35.0 Nonrheumatic aortic (valve) stenosis; K59.09 Other constipation; Z79.01 Long term (current) use of anticoagulants; Z79.899 Other long term (current) drug therapy; Z88.8 Allergy status to other drugs, medicaments and biological substances; Z95.1 Presence of aortocoronary bypass graft; Z95.0 Presence of cardiac pacemaker; Z95.2 Presence of prosthetic heart valve
CPT/HCPCS: 71045; 80053 ×2; 80061; 82550; 82553 ×2; 83880; 84484 ×3; 85025 ×2; 85347 ×2; 85610 ×2; 93005 ×2; 93454; 94640 ×3; 94760 ×2; 97139 ×4; 99285; C1769 ×2; C1874; C1887; C9600; G0378 ×4; 36415; 92928; 93010; 99152; 99153; J1644; J2001; J2250; J2720; J7626; Q9967

== ENCOUNTER 2020-01-13 21:56 | Emergency (ER) | payer MEDICARE, BC ==
[2020-01-13 23:21] LABS: #Eosinphils 0.2 thou/uL (0.0-0.7); #Lymphocytes 1.1 thou/uL (1.20-3.40); #Monocytes 0.5 thou/uL (0.11-0.59); #Neutrophils 2.6 thou/uL (1.40-6.50); %Basophils 0.2 % (0.0-1.0); %Eosinophils 3.9 % (0.0-10.0); %Lymphocytes 24.2 % (21.0-51.0); %Monocytes 12.4 % (0.0-10.0); %Neutrophils 59.3 % (42.0-75.0); Hemoglobin 12.9 g/dL (14.0-18.0); Mean Corpuscular HGB CONC 33.7 g/dL (32.0-36.0); Mean Corpuscular Hemoglobin 30.9 pg (27.0-31.0); Mean Corpuscular Volume 91.5 fL (78.0-98.0); Mean Platelet Volume 7.2 fL (7.4-10.4); Platelet Count 181 thou/uL (130-400); RBC Distribution Width 13.1 % (11.5-14.5); Red Blood Cell (RBC) Count 4.18 mill/uL (4.70-6.10); White Blood Cell (WBC) Count 4.4 thou/uL (4.8-10.8)
[2020-01-13 23:27] LABS: INR-International Normal Ratio 3.1; Prothrombin Time 31.4 SEC (12.0-14.7)
[2020-01-13 23:48] LABS: ALT (SGPT) 14 U/L (8-55); AST (SGOT) 21 U/L (5-34); Albumin 3.6 g/dL (3.4-4.8); Alkaline Phosphatase 71 U/L (40-110); Anion Gap 13 mmol/L (10-20); BUN (Urea Nitrogen) 34 mg/dL (8.4-25.7); Bilirubin, Total 1.2 mg/dL (0.2-1.2); Calc. Creatinine Clearance 0 mL/min (70-130); Calcium 9.1 mg/dL (7.8-10.44); Carbon Dioxide 24 mmol/L (23-31); Chloride 106 mmol/L (98-107); Estimated GFR-MDRD 68; Globulin 3.4 g/dL (2.4-3.5); Glucose 97 mg/dL (83-110); Potassium 4.5 mmol/L (3.5-5.1); Sodium 138 mmol/L (136-145)
== END 2020-01-14 00:30 | disposition home or self-care (01) ==
LOC: ERS 21:56
DX: S50.12XA Contusion of left forearm, initial encounter (principal); I50.9 Heart failure, unspecified; Z79.01 Long term (current) use of anticoagulants; Z79.899 Other long term (current) drug therapy; X58.XXXA Exposure to other specified factors, initial encounter
CPT/HCPCS: 36415; 80053; 85025; 85610; 99283

== ENCOUNTER 2020-12-11 08:46 | Emergency (ER) | payer MEDICARE, BC ==
--- NOTE | 2020-12-11 09:53 | CT ---
CT BRAIN WITHOUT CONTRAST: HISTORY:Fall. Patient is on Coumadin. Headache COMPARISON:08/27/2019 FINDINGS: There are foci of decreased attenuation in the periventricular white matter, consistent with chronic small vessel ischemic disease. No evidence of acute infarct, hemorrhage, midline shift or abnormal extra-axial fluid collections is seen. The ventricular size is appropriate and the basilar cisterns are patent. The bony calvarium is intact. Tiny calcific densities in the posterior optic globes are again seen. The visualized paranasal sinuse s and mastoid air cells are well aerated. There is a small mucous retention cyst versus polyp arising from the anterior wall of the right maxillary sinus IMPRESSION: No CT evidence of acute intracranial process.
[2020-12-11] MEDS ORDERED: HYDROcodone/Acetaminophen 5/325 mg Tablet ONE (10:50)
--- NOTE | 2020-12-11 12:12 | RAD ---
LEFT WRIST 3 VIEWS: Date: 12/11/2020 HISTORY: Left wrist pain. FOOSH injury. Fall. Left wrist pain. FINDINGS/IMPRESSION: Comparison made with exam of 08/27/2019. 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 Amorphous appearing calcifications in the dorsal aspect of the wrist are again seen. No acute fracture or dislocation is seen. If symptoms do not improve, a follow-up exam should be obtained in 7-10 days. POS: OFF
== END 2020-12-11 10:56 | disposition home or self-care (01) ==
LOC: ERS 08:46
DX: S63.502A Unspecified sprain of left wrist, initial encounter (principal); I50.9 Heart failure, unspecified; Z79.01 Long term (current) use of anticoagulants; Z79.899 Other long term (current) drug therapy; W01.0XXA Fall on same level from slipping, tripping and stumbling without subsequent striking against object, initial encounter; Y93.01 Activity, walking, marching and hiking; Y92.89 Other specified places as the place of occurrence of the external cause
CPT/HCPCS: 70450

== ENCOUNTER 2021-07-24 10:46 | Emergency (ER) | payer MEDICARE, BC ==
[2021-07-24 12:11] LABS: #Eosinphils 0.1 thou/uL (0.0-0.7); #Monocytes 0.4 thou/uL (0.11-0.59); #Neutrophils 2.4 thou/uL (1.40-6.50); %Basophils 0.3 % (0.0-1.0); %Lymphocytes 26.1 % (21.0-51.0); %Monocytes 9.8 % (0.0-10.0); %Neutrophils 60.8 % (42.0-75.0); Mean Corpuscular Hemoglobin 30.2 pg (27.0-31.0); Mean Corpuscular Volume 94.2 fL (78.0-98.0); Mean Platelet Volume 7.3 fL (7.4-10.4); Platelet Count 135 thou/uL (130-400); RBC Distribution Width 13.6 % (11.5-14.5); Red Blood Cell (RBC) Count 4.31 mill/uL (4.70-6.10); White Blood Cell (WBC) Count 3.9 thou/uL (4.8-10.8)
[2021-07-24 12:49] LABS: Anion Gap 10 mmol/L (10-20); BUN (Urea Nitrogen) 24 mg/dL (8.4-25.7); Calc. Creatinine Clearance 0 mL/min (70-130); Carbon Dioxide 26 mmol/L (23-31); Chloride 107 mmol/L (98-107); Potassium 4.6 mmol/L (3.5-5.1); Sodium 138 mmol/L (136-145)
[2021-07-24 12:50] LABS: ALT (SGPT) 17 U/L (8-55); AST (SGOT) 19 U/L (5-34); Albumin 3.5 g/dL (3.4-4.8); Alkaline Phosphatase 75 U/L (40-110); Bilirubin, Total 1.7 mg/dL (0.2-1.2); Calcium 8.9 mg/dL (7.8-10.44); Globulin 2.8 g/dL (2.4-3.5); Glucose 80 mg/dL (83-110); Protein, Total 6.3 g/dL (5.8-8.1)
== END 2021-07-24 13:26 | disposition left against medical advice (07) ==
LOC: ERS 10:46
DX: Z53.21 Procedure and treatment not carried out due to patient leaving prior to being seen by health care provider (principal)
CPT/HCPCS: 36415; 80053; 85025

== ENCOUNTER 2023-03-15 20:30 | Emergency (ER) | payer OTHER, MEDICARE, BC | END 2023-03-15 21:51 | disposition home or self-care (01) | LOC: ERS 20:30 | DX: S60.211A Contusion of right wrist, initial encounter (principal); I10 Essential (primary) hypertension; E78.00 Pure hypercholesterolemia, unspecified; W01.10XA Fall on same level from slipping, tripping and stumbling with subsequent striking against unspecified object, initial encounter ==

== ENCOUNTER 2023-09-19 09:55 | Outpatient (CLI) | payer MEDICARE, BC | END 2023-09-19 09:56 | disposition home or self-care (01) | LOC: BICRAD 09:55 | PROVIDERS: ATTEND Family Medicine | DX: Z00.00 Encounter for general adult medical examination without abnormal findings (principal) | CPT/HCPCS: 71045 ==

== ENCOUNTER 2023-11-30 17:56 | Emergency (ER) | payer MEDICARE, BC ==
[2023-11-30 18:51] LABS: #Eosinphils 0.2 thou/uL (0.0-0.7); #Monocytes 0.3 thou/uL (0.11-0.59); #Neutrophils 2.4 thou/uL (1.40-6.50); %Basophils 0.9 % (0.0-1.0); %Eosinophils 4.7 % (0.0-10.0); %Lymphocytes 29.7 % (21.0-51.0); %Monocytes 7.8 % (0.0-10.0); %Neutrophils 56.7 % (42.0-75.0); Hematocrit 40.6 % (42.0-52.0); Hemoglobin 13.8 g/dL (14.0-18.0); Mean Corpuscular Hemoglobin 30.5 pg (27.0-31.0); Mean Corpuscular Volume 89.8 fl (78.0-98.0); Mean Platelet Volume 9.9 fL (7.4-10.4); Platelet Count 132 10x3/uL (130-400); RBC Distribution Width 15.5 % (11.5-14.5); Red Blood Cell (RBC) Count 4.52 mill/uL (4.70-6.10); White Blood Cell (WBC) Count 4.2 10x3/uL (4.8-10.8)
[2023-11-30] MEDS ORDERED: Lidocaine 1% w/Epinephrine 1:100K 20 ML VIAL ONE (19:05)
[2023-11-30 19:14] LABS: Prothrombin Time 39.1 sec (12.0-14.7)
[2023-11-30 19:15] LABS: PTT 45.7 sec (22.9-36.1)
[2023-11-30 19:18] LABS: Albumin 3.7 g/dL (3.4-4.8)
[2023-11-30 19:20] LABS: Calcium 8.5 mg/dL (7.8-10.44); Chloride 109 mmol/L (98-107)
[2023-11-30 19:21] LABS: Globulin 2.9 g/dL (2.4-3.5); Glucose 140 mg/dL (83-110); Protein, Total 6.6 g/dL (5.8-8.1)
[2023-11-30 19:22] LABS: Anion Gap 12 mmol/L (10-20); Carbon Dioxide 23 mmol/L (23-31); Sodium 140 mmol/L (136-145)
[2023-11-30 19:23] LABS: Bilirubin, Total 1.3 mg/dL (0.2-1.2)
[2023-11-30 19:24] LABS: Alkaline Phosphatase 67 U/L (40-110); Calc. Creatinine Clearance 0 mL/min (70-130); Estimated GFR 79
[2023-11-30 19:25] LABS: BUN (Urea Nitrogen) 28 mg/dL (8.4-25.7)
[2023-11-30 19:26] LABS: AST (SGOT) 26 U/L (5-34)
[2023-11-30 19:27] LABS: ALT (SGPT) 23 U/L (8-55)
== END 2023-11-30 22:50 | disposition home or self-care (01) ==
LOC: ERS 17:56
DX: S01.511A Laceration without foreign body of lip, initial encounter (principal); S09.90XA Unspecified injury of head, initial encounter; R79.1 Abnormal coagulation profile; E78.00 Pure hypercholesterolemia, unspecified; I10 Essential (primary) hypertension; Z79.899 Other long term (current) drug therapy; Z79.01 Long term (current) use of anticoagulants; W01.0XXA Fall on same level from slipping, tripping and stumbling without subsequent striking against object, initial encounter
CPT/HCPCS: 12011; 70450; 70486; 72125; 80053; 85025; 85610; 85730

== ENCOUNTER 2024-04-20 16:00 | Outpatient (CLI) | payer MEDICARE | END 2024-04-20 16:01 | disposition home or self-care (01) | LOC: SLEEPLAB 16:00 | PROVIDERS: ATTEND Family Medicine | DX: G47.33 Obstructive sleep apnea (adult) (pediatric) (principal); R53.83 Other fatigue; R06.83 Snoring; I10 Essential (primary) hypertension; G47.10 Hypersomnia, unspecified; I25.10 Atherosclerotic heart disease of native coronary artery without angina pectoris; K21.9 Gastro-esophageal reflux disease without esophagitis; G47.00 Insomnia, unspecified; G47.52 REM sleep behavior disorder | CPT/HCPCS: 95810 ==

== ENCOUNTER 2024-11-26 08:19 | Outpatient (CLI) | payer MEDICARE | END 2024-11-26 08:20 | disposition home or self-care (01) | LOC: RAD 08:19 | PROVIDERS: ATTEND Internal Medicine Critical Care Medicine | DX: R06.00 Dyspnea, unspecified (principal) | CPT/HCPCS: 71046 ==

== ENCOUNTER → 2025-07-30 | Day surgery (SDC) | payer MEDICARE ==
[2025-07-29 11:14] VITALS: BMI 29.0
[~2025-07-30] MED LIST: Bacitracin Zinc Ointment 30 gm TUBE ONE; CEFAZOLIN 2 GM VIAL ONE; Lidocaine 2% PF 100 mg/5 ml Syringe ONE; Ondansetron PF 4 MG/2 ML Vial ONE; PHENYLEPHRINE-NS 100 MCG/ML 10 ML SYRINGE ONE; PROPOFOL 20 ML ONE; fentaNYL PF 100 MCG/2 ML SYRINGE ONE
[2025-07-30 06:44] LABS: #Basophils Less than 0.03 10x3/uL (0.0-0.2); #Eosinophils 0.20 10x3/uL (0.0-0.7); #Monocytes 0.40 10x3/uL (0.11-0.59); #Neutrophils 2.20 10x3/uL (1.40-6.50); %Basophils 0.5 % (0.0-1.0); %Eosinophils 5.1 % (0.0-10.0); %Lymphocytes 28.2 % (21.0-51.0); %Monocytes 10.2 % (0.0-10.0); %Neutrophils 55.7 % (42.0-75.0); Hematocrit 40.0 % (42.0-52.0); Hemoglobin 12.8 g/dL (14.0-18.0); Mean Corpuscular Hemoglobin 29.5 pg (27.0-31.0); Mean Corpuscular Volume 92.2 fL (78.0-98.0); Platelet Count 123 10x3/uL (130-400); Red Blood Cell (RBC) Count 4.34 mill/uL (4.70-6.10); White Blood Cell (WBC) Count 3.94 10x3/uL (4.8-10.8)
[2025-07-30 07:31] LABS: INR-International Normal Ratio 2.1; Prothrombin Time 23.4 sec (12.0-14.7)
[2025-07-30 07:32] LABS: PTT 43.0 sec (22.9-36.1)
== END ==
LOC: SDC 05:47
PROVIDERS: ATTEND Orthopaedic Surgery Hand Surgery
DX: M18.12 Unilateral primary osteoarthritis of first carpometacarpal joint, left hand (principal); Z53.8 Procedure and treatment not carried out for other reasons; S63.042A Subluxation of carpometacarpal joint of left thumb, initial encounter; Z88.6 Allergy status to analgesic agent; X58.XXXA Exposure to other specified factors, initial encounter
CPT/HCPCS: 85025; 85610; 85730; J0169; J0665; J2704; J1100; J2003; J2405; J3010

== ENCOUNTER 2025-08-03 11:53 | Inpatient (IN) | payer MEDICARE ==
[2025-08-03] MEDS ORDERED: CEFAZOLIN 2 GM VIAL ONE (12:51)
[2025-08-03 12:56] LABS: INR-International Normal Ratio 1.2; PTT 41.9 sec (22.9-36.1); Prothrombin Time 15.7 sec (12.0-14.7)
[2025-08-03] MEDS ORDERED: fentaNYL PF 100 MCG/2 ML SYRINGE ONE ×2 (13:08→18:15)
[2025-08-03] MEDS ORDERED: Ondansetron PF 4 MG/2 ML Vial ONE (13:08)
[2025-08-03] MEDS ORDERED: Lidocaine 1% PF 5 ML VIAL ONE (13:08)
[2025-08-03] MEDS ORDERED: Bacitracin Zinc Ointment 30 gm TUBE ONE (13:11)
[2025-08-03] MEDS ORDERED: Lidocaine 2% 6 ML (Jelly) SYR ONE (13:35)
[2025-08-03] MEDS ORDERED: Rocuronium Bromide 10 MG/ML (10ML VIAL) ONE (13:50)
[2025-08-03] MEDS ORDERED: PROPOFOL 200 MG/20 ML VIAL ONE (13:50)
[2025-08-03] MEDS ORDERED: PHENYLEPHRINE-NS 100 MCG/ML 10 ML SYRINGE ONE (13:50)
[2025-08-03] MEDS ORDERED: Thrombin 5000 UNITS/5 ML VIAL ONE (15:51)
[2025-08-03] MEDS ORDERED: SUGAMMADEX SODIUM 200 MG/2 ML VIAL ONE (17:44)
[2025-08-03] MEDS ORDERED: Ondansetron PF 4 MG/2 ML Vial SLOW IVP PRN (18:12)
[2025-08-03] MEDS ORDERED: TETANUS, DIPHTHERIA TOX,ADULT (TDVAX) 0.5 ML VIAL IM ONE (18:12)
[2025-08-03] MEDS ORDERED: Communication Order-Pharmacy FS SCH (18:15)
[2025-08-03] MEDS ORDERED: HYDROmorphone 0.5 MG/0.5 ML SYRINGE ONE (18:43)
[2025-08-03 20:08] LABS: #Basophils Less than 0.03 10x3/uL (0.0-0.2); #Eosinophils 0.06 10x3/uL (0.0-0.7); #Monocytes 0.36 10x3/uL (0.11-0.59); #Neutrophils 3.56 10x3/uL (1.40-6.50); %Basophils 0.4 % (0.0-1.0); %Eosinophils 1.3 % (0.0-10.0); %Lymphocytes 12.6 % (21.0-51.0); %Monocytes 7.8 % (0.0-10.0); %Neutrophils 77.5 % (42.0-75.0); Hematocrit 39.1 % (42.0-52.0); Hemoglobin 12.7 g/dL (14.0-18.0); Mean Corpuscular Hemoglobin 30.0 pg (27.0-31.0); Mean Corpuscular Volume 92.2 fL (78.0-98.0); Platelet Count 107 10x3/uL (130-400); Red Blood Cell (RBC) Count 4.24 mill/uL (4.70-6.10); White Blood Cell (WBC) Count 4.60 10x3/uL (4.8-10.8)
[2025-08-03 20:12] LABS: INR-International Normal Ratio 1.4; PTT 35.8 sec (22.9-36.1); Prothrombin Time 16.9 sec (12.0-14.7)
[2025-08-03] MEDS: Aspirin 81 mg Enteric Coated Tablet PO SCH (21:59)
[2025-08-03] MEDS: Enoxaparin 100 MG (1 mL) SYRINGE SC SCH (22:14)
[2025-08-03] MEDS ORDERED: Mometasone 100 MCG/Formoterol 5 MCG 120 PUFF INHALER INH PRN (22:21)
[2025-08-03] MEDS: TETANUS AND DIPHTHERIA TOX/PF 0.5 ML DISP.SYRIN IM SCH (22:24)
[2025-08-04 00:24] VITALS: BMI 30.5
[2025-08-04] MEDS: Acetaminophen 325 MG TAB PO PRN (03:47)
[2025-08-04 05:48] LABS: #Basophils 0.03 10x3/uL (0.0-0.2); #Eosinophils 0.05 10x3/uL (0.0-0.7); #Monocytes 0.58 10x3/uL (0.11-0.59); #Neutrophils 3.62 10x3/uL (1.40-6.50); %Basophils 0.6 % (0.0-1.0); %Eosinophils 1.0 % (0.0-10.0); %Lymphocytes 18.1 % (21.0-51.0); %Monocytes 11.1 % (0.0-10.0); %Neutrophils 69.0 % (42.0-75.0); Hematocrit 37.9 % (42.0-52.0); Hemoglobin 11.9 g/dL (14.0-18.0); Mean Corpuscular Hemoglobin 29.4 pg (27.0-31.0); Mean Corpuscular Volume 93.6 fL (78.0-98.0); Platelet Count 105 10x3/uL (130-400); Red Blood Cell (RBC) Count 4.05 mill/uL (4.70-6.10); White Blood Cell (WBC) Count 5.24 10x3/uL (4.8-10.8)
[2025-08-04 05:51] LABS: Anion Gap 11 mmol/L (10-20); BUN (Urea Nitrogen) 23 mg/dL (8.4-25.7); Calc. Creatinine Clearance 76 mL/min (70-130); Calcium 8.6 mg/dL (7.8-10.44); Carbon Dioxide 27 mmol/L (23-31); Chloride 108 mmol/L (98-107); Glucose 115 mg/dL (83-110); Potassium 4.1 mmol/L (3.5-5.1); Sodium 142 mmol/L (136-145)
[2025-08-04] MEDS: Metoprolol Succinate XL 25 MG ER.TAB PO SCH (08:57)
[2025-08-04] MEDS: Polyvinyl Alcohol 1.4%/Povidone 0.6% Opth Drops EA EYE SCH (08:57)
[2025-08-04] MEDS: Furosemide 20 MG TAB PO SCH (08:57)
[2025-08-04] MEDS: HYDROcodone/Acetaminophen 5/325 mg Tablet PO PRN (09:05)
[2025-08-04 12:45] VITALS: BP 118/68; TEMP 97.4
== END 2025-08-04 17:33 | disposition home or self-care (01) | DRG 501 ==
LOC: SDC 11:53 → 2NO 18:20
PROVIDERS: ADMIT Orthopaedic Surgery Hand Surgery; ATTEND Student in an Organized Health Care Education/Training Program
PROC: 0PTN0ZZ Resection of Left Carpal, Open Approach (ICD-10-PCS; principal; 2025-08-03)
PROC: 0LB60ZZ Excision of Left Lower Arm and Wrist Tendon, Open Approach (ICD-10-PCS; 2025-08-03)
PROC: 0RRT07Z Replacement of Left Carpometacarpal Joint with Autologous Tissue Substitute, Open Approach (ICD-10-PCS; 2025-08-03)
PROC: 0RGV04Z Fusion of Left Metacarpophalangeal Joint with Internal Fixation Device, Open Approach (ICD-10-PCS; 2025-08-03)
PROC: 0RUT07Z Supplement Left Carpometacarpal Joint with Autologous Tissue Substitute, Open Approach (ICD-10-PCS; 2025-08-03)
PROC: 03LC0ZZ Occlusion of Left Radial Artery, Open Approach (ICD-10-PCS; 2025-08-03)
PROC: 3E03329 Introduction of Other Anti-infective into Peripheral Vein, Percutaneous Approach (ICD-10-PCS; 2025-08-03)
PROC: 3E033XZ Introduction of Vasopressor into Peripheral Vein, Percutaneous Approach (ICD-10-PCS; 2025-08-03)
PROC: 3E0234Z Introduction of Serum, Toxoid and Vaccine into Muscle, Percutaneous Approach (ICD-10-PCS; 2025-08-03)
DX: M18.12 Unilateral primary osteoarthritis of first carpometacarpal joint, left hand (principal); D61.818 Other pancytopenia; I48.92 Unspecified atrial flutter; S63.112A Subluxation of metacarpophalangeal joint of left thumb, initial encounter; I25.10 Atherosclerotic heart disease of native coronary artery without angina pectoris; S63.102A Unspecified subluxation of left thumb, initial encounter; I10 Essential (primary) hypertension; E78.5 Hyperlipidemia, unspecified; G43.909 Migraine, unspecified, not intractable, without status migrainosus; Z96.692 Finger-joint replacement of left hand; J45.909 Unspecified asthma, uncomplicated; G47.33 Obstructive sleep apnea (adult) (pediatric); M19.032 Primary osteoarthritis, left wrist; I71.40 Abdominal aortic aneurysm, without rupture, unspecified; Z23 Encounter for immunization; Z98.890 Other specified postprocedural states; Z95.5 Presence of coronary angioplasty implant and graft; Z79.899 Other long term (current) drug therapy; Z79.51 Long term (current) use of inhaled steroids; Z95.0 Presence of cardiac pacemaker; Z85.46 Personal history of malignant neoplasm of prostate; Z95.2 Presence of prosthetic heart valve; Z95.1 Presence of aortocoronary bypass graft; Z79.01 Long term (current) use of anticoagulants; Z87.891 Personal history of nicotine dependence; M19.29 Secondary osteoarthritis, other specified site
CPT/HCPCS: 36415; 80048; 82550; 85025; 85610; 85730; 90714; 93005; 93010; 94640; C1713; C1894; J0665; J1100; J1171; J1650; J2704